=== PATIENT | female | born 1975 | race Caucasian/White ===

== ENCOUNTER 2016-08-06 16:47 | Inpatient (IN) | payer OTHER ==
[2016-08-06] MEDS ORDERED: HYDROmorphone HCL CARPU-JECT 1 MG/1 ML DISP.SYRIN IVPB ONE ×2 (17:21→18:22)
[2016-08-06] MEDS ORDERED: ONDANSETRON 4 MG/2 ML VIAL IVPUSH ONE (17:21)
--- NOTE | 2016-08-06 17:21 | PDOC ---
History of Present Illness - History of Present Illness Initial Comments: 08/06/16 17:25 The patient is a 40 year old female s/p gastric bypass 10 years ago who presents to the ED complaining of epigastric pain since this morning. The patient reports she had multiple episodes of this pain following her bypass surgery, but reports she has not had this pain in 5 years. She notes this pain is similar to the pain she has had in the past. She states when she has had this pain in the past she went to the ED and was given pain medication and medication to help her burp and move her bowels. She reports she has not had a bowel movement in 2 days and thinks she is constipated. She took an Oxycotin on the way to the ED and notes her pain was relieved for a short period of time. The patient denies nausea, vomiting, diarrhea The patient denies fever, chills, dysuria Surgical: Gastric bypass, breast reduction, tummy tuck, liposuction, hernia repair <Janice Tejada - Last Filed: 08/06/16 17:39> - General History Source: Patient Exam Limitations: No Limitations - History of Present Illness Travel History: No <Aga Christina - Last Filed: 08/07/16 12:19> - General Chief Complaint: Pain Stated Complaint: ABDOMINAL PAIN Time Seen by Provider: 08/06/16 16:49 Past History <Janice Tejada - Last Filed: 08/06/16 17:39> - Past Medical History Asthma: Yes GI Disorders: Yes (GASTRIC BYPASS) - Surgical History GI Surgery: Yes - Psycho/Social/Smoking Cessation Hx Anxiety: Yes Suicidal Ideation: No Smoking History: Former smoker Have you smoked in the past 12 months: No If you are a former smoker, when did you quit?: 20 YEARS AGO Information on smoking cessation initiated: No Hx Alcohol Use: No Drug/Substance Use Hx: No Substance Use Type: None <Aga Christina - Last Filed: 08/07/16 12:19> - Past Medical History Allergies/Adverse Reactions: Allergies Allergy/AdvReac Type Severity Reaction Status Date / Time No Known Allergies Allergy Verified 08/06/16 16:48 Home Medications: Ambulatory Orders Montelukast Na [Singulair -] 0 mg PO HS 08/06/16 Oxycodone HCl 10 mg PO QID 08/06/16 Review of Systems - Review of Systems Able to Perform ROS?: Yes Comments:: 08/06/16 17:27 GENERAL/CONSTITUTIONAL: No: fever, chills, weakness, loss of appetite. HEAD, EYES, EARS, NOSE AND THROAT: No: change in vision, ear pain, discharge, sore throat, throat swelling. CARDIOVASCULAR: No: chest pain, lightheadedness, palpitations, syncope RESPIRATORY: No: cough, shortness of breath, wheezing, hemoptysis, stridor. GASTROINTESTINAL: +Epigastric pain, constipation. No: nausea, vomiting, diarrhea , rectal bleeding, constipation. GENITOURINARY: No: dysuria, hematuria, frequency, urgency, flank pain. MUSCULOSKELETAL: No: back pain, neck pain, joint pain, muscle swelling or pain SKIN: No: lesions, pallor, rash or easy bruising. NEUROLOGIC: No: headache, vertigo, paresthesias, weakness ENDOCRINE: No: unexplained weight gain or loss HEMATOLOGIC/LYMPHATIC: No: anemia, easy bleeding, swelling nodes <Janice Tejada - Last Filed: 08/06/16 17:39> *Physical Exam - Vital Signs Last Vital Signs Temp Pulse Resp BP Pulse Ox 99 F 55 L 18 185/122 98 08/06/16 16:48 08/06/16 16:48 08/06/16 16:48 08/06/16 16:48 08/06/16 16:48 - Physical Exam Comments: 08/06/16 17:40 GENERAL: The patient is in no acute distress. HEAD: Normal with no signs of trauma. EYES: PERRLA, EOMI, sclera anicteric, conjunctiva clear. ENT: Ears normal, nares patent, oropharynx clear without exudates. Moist mucous membranes. NECK: Normal range of motion, supple without lymphadenopathy, JVD, or masses. LUNGS: Breath sounds equal, clear to auscultation bilaterally. No wheezes, and no crackles. HEART:Regular rate and rhythm, normal S1 and S2 without murmur, rub or gallop. ABDOMEN: +Tenderness to the epigastric region. Soft, normoactive bowel sounds. No guarding, no rebound. EXTREMITIES: Normal range of motion, no edema. No clubbing or cyanosis. No erythema, or tenderness. NEUROLOGICAL: Cranial nerves II through XII grossly intact. Normal speech. No focal neurological deficits. MUSCULOSKELETAL: Back nontender to palpation, no CVA tenderness SKIN: Warm, Dry, normal turgor, no rashes or lesions noted. <RhondaJanice rosario - Last Filed: 08/06/16 17:39> - Vital Signs Last Vital Signs Temp Pulse Resp BP Pulse Ox 99 F 55 L 18 185/122 98 08/06/16 16:48 08/06/16 16:48 08/06/16 16:48 08/06/16 16:48 08/06/16 16:48 <Aga Christina - Last Filed: 08/07/16 12:19> ED Treatment Course - LABORATORY CBC & Chemistry Diagram: 08/07/16 07:00 08/07/16 07:00 <Aga Christina - Last Filed: 08/07/16 12:19> Medical Decision Making - Medical Decision Making 08/06/16 17:21 A portion of this note was documented by scribe services under my direction. I have reviewed the details of the note, within reason, and agree with the documentation with the following case summary and management plan written by me. Nursing documentation reviewed and incorporated into medical decision making 40 yo F s/p gastric bypass at [facility] 10 years ago presenting to the ER with a complaint of upper abdominal pain Pt states she had previously had these symptoms but has not had them in the past 5 years She has not had a bowel movement in 2 days Her abdominal pain she thinks is related to "gas pain" She has had no fevers or chills She is nauseous but has not vomited No travel No ill contacts She states that at [place] she got a medication for pain and for gas which completely resolved her symptoms Pt thinks her abdomen is distended On examination: Epigastric tenderness to palpation No involuntary guarding No rebound 08/06/16 18:15 Laboratory Tests 08/06/16 08/06/16 17:30 17:30 WBC 6.5 Hgb 13.9 Hct 42.0 Plt Count 253 Sodium 132 L Potassium 3.9 Chloride 101 Carbon Dioxide 24 BUN 14 Creatinine 0.8 Random Glucose 103 Total Amylase 70 Lipase 29 Pt given Dilaudid (pt states "Do not give me Morphine, it does not work") Pt given Simethicone Will do CT of abd and pelvis 08/06/16 18:21 Pt states Dilaudid does not work for her, it takes the pain away temporarily but then it returns again 08/06/16 19:00 Pt signed out to Dr Lugo pending CT and re assessment after more pain medications <Aga Christina - Last Filed: 08/07/16 12:19> *DC/Admit/Observation/Transfer - Attestations Scribe Attestion: 08/06/16 17:26 Documentation prepared by Janice Tejada, acting as manager medical writing for Aga Christina MD/DO. <Janice Tejada - Last Filed: 08/06/16 17:39> <Aga Christina - Last Filed: 08/07/16 12:19> Diagnosis at time of Disposition: Abdominal pain - Discharge Dispostion Condition at time of disposition: Stable
[2016-08-06] MEDS ORDERED: SIMETHICONE 80 MG TAB.CHEW (FP) PO ONE (17:31)
[2016-08-06] MEDS ORDERED: HYDROmorphone HCL CARPU-JECT 2 MG/1 ML DISP.SYRIN ONE (17:40)
[2016-08-06] MEDS ORDERED: ONDANSETRON 4 MG/2 ML VIAL ONE (17:40)
[2016-08-06] MEDS ORDERED: SIMETHICONE 80 MG TAB.CHEW (FP) ONE (17:40)
[2016-08-06 17:57] VITALS: BMI 27.6
[2016-08-06 18:09] LABS: ALBUMIN 4.2 g/dl (3.5-5.0); ALK PHOS 62 U/L (32-92); AMYLASE 70 U/L (25-125); ANION GAP 7 (8-16); BILIRUBIN,TOTAL 0.8 mg/dl (0.2-1.0); CO2 24 mmol/L (22-28); CREATININE 0.8 mg/dl (0.6-1.3); GLUCOSE,RANDOM 103 mg/dl (74-106); SGOT/AST 43 U/L (10-42); SGPT/ALT 26 U/L (10-40); TOT PROT 7.6 g/dl (6.4-8.3)
[2016-08-06 18:11] LABS: MCH 29.8 pg (25.7-33.7); MCHC 33.2 g/dl (32.0-36.0); MEAN CELL VOLUME 89.8 fl (80-96); MEAN PLT VOLUME 9.3 fl (7.5-11.1); PLATELET COUNT 253 K/MM3 (134-434); RDW 16.2 % (11.6-15.6); WHITE BLOOD COUNT 6.5 K/mm3 (4.0-10.0)
[2016-08-06] MEDS ORDERED: KETOROLAC TROMETHAMINE 30 MG/1 ML VIAL IVPUSH ONE (19:09)
--- NOTE | 2016-08-06 19:10 | PDOC ---
*Physical Exam - Vital Signs Last Vital Signs Temp Pulse Resp BP Pulse Ox 99 F 68 18 172/108 98 08/06/16 16:48 08/06/16 18:57 08/06/16 18:57 08/06/16 18:57 08/06/16 18:57 ED Treatment Course - LABORATORY CBC & Chemistry Diagram: 08/06/16 17:30 08/06/16 17:30 - ADDITIONAL ORDERS Additional order review: Laboratory Results 08/06/16 08/06/16 17:30 17:30 Sodium 132 L Potassium 3.9 Chloride 101 Carbon Dioxide 24 Anion Gap 7 L BUN 14 Creatinine 0.8 Creat Clearance w eGFR > 60 Random Glucose 103 Calcium 10.0 Total Bilirubin 0.8 AST 43 H ALT 26 Alkaline Phosphatase 62 Total Protein 7.6 Albumin 4.2 Total Amylase 70 Lipase 29 Serum , Qual Negative 08/06/16 17:30 RBC 4.67 MCV 89.8 MCHC 33.2 RDW 16.2 H MPV 9.3 Neutrophils % Y Lymphocytes % Y - Medications Given in the ED: ED Medications Discontinued Medications Generic Name Dose Route Start Last Admin Trade Name Freq PRN Reason Stop Dose Admin Hydromorphone HCl 0.5 mg 08/06/16 17:21 08/06/16 17:47 Dilaudid Injection - IVPB 08/06/16 17:22 0.5 mg NOW ONE Administration Hydromorphone HCl 0.5 mg 08/06/16 18:22 08/06/16 18:56 Dilaudid Injection - IVPB 08/06/16 18:23 0.5 mg NOW ONE Administration Ondansetron HCl 4 mg 08/06/16 17:21 08/06/16 17:46 Zofran Injection IVPUSH 08/06/16 17:22 4 mg ONCE ONE Administration Simethicone 80 mg 08/06/16 17:31 08/06/16 17:45 Mylicon - PO 08/06/16 17:32 80 mg NOW ONE Administration Progress Note - Progress Note Progress Note: Care of this patient received from Dr. Christina. Abdominal/pelvic CT (with minimal oral contrast and full IV contrast) notable for significant mesenteric edema and some dilated small bowel loops, mainly in the lower quadrants . There are areas of dilated small bowel and areas of decompressed small bowel. colon appears normal. There is a small amount of pelvic free fluid. Thickening of small bowel loops are present in localized areas of the pelvis. Results discussed with Dr. Shukla; Dr. Shukla sent CT to Imaging plant protection superintendent for second opinion and results discussed with . Diagnoses of possible internal hernia versus inflammatory/infectious process of small bowel are brought up. Patient eventually became more comfortable after receiving 0.5 mg Dilaudid IV ( patient states was ineffective), Toradol 30 mg IV (also ineffective) and eventually 2 mg of morphine IV after which she had significant resolution of her pain. Twelve-lead electrocardiogram performed. This shows mild sinus tachycardia at 100 bpm; intervals, axis and wave forms are all normal. No evidence of acute ST or T-wave abnormalities. Case discussed with patient's PMD, Dr. Jez Godoy. Dr[facility]. Medical Decision Making - Medical Decision Making Case discussed with Dr. Perez, who performed patient's original surgery at [facility] 10 years ago. He will see her in the morning. 08/07/16 01:[address] Cooper of [facility] hospitalist service. Patient will be admitted under observation status to the service. Patient currently comfortable without further severe abdominal pain or nausea. Patient transferred to admission bed in stable condition. *DC/Admit/Observation/Transfer Diagnosis at time of Disposition: Abdominal pain Qualifiers: Abdominal location: generalized Qualified Code(s): R10.84 - Generalized abdominal pain - Discharge Dispostion Condition at time of disposition: Stable Admit: Yes
[2016-08-06] MEDS ORDERED: KETOROLAC TROMETHAMINE 30 MG/1 ML VIAL ONE (19:12)
[2016-08-06] MEDS ORDERED: morphine CARPU-JECT 2 MG/1 ML DISP.SYRIN IVPUSH ONE (19:41)
[2016-08-06] MEDS ORDERED: morphine CARPU-JECT 10 MG/1 ML DISP.SYRIN ONE (19:44)
[2016-08-06 20:05] LABS: ANISOCYTOSIS 1+
[2016-08-07] MEDS ORDERED: ONDANSETRON 4 MG/2 ML VIAL IVPUSH PRN (01:19)
[2016-08-07] MEDS ORDERED: cloNIDine HCL 0.1 MG TABLET PO ONE (01:19)
[2016-08-07] MEDS ORDERED: cloNIDine HCL 0.1 MG TABLET ONE (01:21)
[2016-08-07] MEDS ORDERED: SODIUM CHLORIDE 1,000 ML IV SCH (01:30)
[2016-08-07] MEDS ORDERED: diphenhydrAMINE HCL 25 MG CAPSULE (FP) PO ONE (02:04)
--- NOTE | 2016-08-07 08:25 | HP ---
CHIEF COMPLAINT: abdominal pain PCP: Dr Godoy HISTORY OF PRESENT ILLNESS: patient is a 40-year-old female, with a past medical history of lumbar disc herniations and a past surgical history of abdominoplasty, breast reduction, and a gastric bypass in 2006 ([place]). She reports multiple intermittent episodes of abdominal pain since surgery that resolved spontaneously on its own. she reports episodes of abdominal pain and was evaluated in local emergency departments was given pain medication and medications increase gastric motility resolution of the pain. However. yesterday, 08/06/2016, she developed this same abdominal pain that worsened and did not resolve as a result she sought evaluation in the emergency department. ER course was notable for: (1)EKG NSR normal axis (2) WBC 6.1 (3) ct scan of abd/pelvis with IV and oral contrast notable for significant mesenteric edema in mid and left side of the abdomen with thickening of the adjacent small bowel loops, moderate dilation of small bowel, short segment of small bowel thickening at the site of sutures around a mid small bowel Recent Travel: none PAST MEDICAL HISTORY: lumbar disc herniations PAST SURGICAL HISTORY:abdominoplasty, breast reduction, gastric bypass Social History:employed as a business applications analyst Smoking:none Alcohol:none Drugs: none Family History:noncontributory Allergies No Known Allergies Allergy (Verified 08/06/16 16:48) HOME MEDICATIONS: Home Medications Medication Instructions Recorded Montelukast Na [Singulair -] 0 mg PO HS 08/06/16 Oxycodone HCl 10 mg PO QID 08/06/16 REVIEW OF SYSTEMS CONSTITUTIONAL: Absent: fever, chills, diaphoresis, generalized weakness, malaise, loss of appetite, weight change HEENT: Absent: rhinorrhea, nasal congestion, throat pain, throat swelling, difficulty swallowing, mouth swelling, ear pain, eye pain, visual changes CARDIOVASCULAR: Absent: chest pain, syncope, palpitations, irregular heart rate, lightheadedness , peripheral edema RESPIRATORY: Absent: cough, shortness of breath, dyspnea with exertion, orthopnea, wheezing, stridor, hemoptysis GASTROINTESTINAL: present: Abdominal pain Absent: abdominal distension, nausea, vomiting, diarrhea, constipation, melena, hematochezia GENITOURINARY: Absent: dysuria, frequency, urgency, hesitancy, hematuria, flank pain, genital pain MUSCULOSKELETAL: Absent: myalgia, arthralgia, joint swelling, back pain, neck pain SKIN: Absent: rash, itching, pallor HEMATOLOGIC/IMMUNOLOGIC: Absent: easy bleeding, easy bruising, lymphadenopathy, frequent infections ENDOCRINE: Absent: unexplained weight gain, unexplained weight loss, heat intolerance, cold intolerance NEUROLOGIC: Absent: headache, focal weakness or paresthesias, dizziness, unsteady gait, seizure, mental status changes, bladder or bowel incontinence PSYCHIATRIC: Absent: anxiety, depression, suicidal or homicidal ideation, hallucinations. PHYSICAL EXAMINATION Vital Signs - 24 hr 08/07/16 08/07/16 08/07/16 01:53 05:19 06:09 Temperature 98.1 F 98.6 F Pulse Rate 92 H 72 Respiratory 18 17 Rate Blood Pressure 153/108 127/87 O2 Sat by Pulse 96 99 Oximetry (%) GENERAL: Awake, alert, and fully oriented, in no acute distress. HEAD: Normal with no signs of trauma. EYES: Pupils equal, round and reactive to light, extraocular movements intact, sclera anicteric, conjunctiva clear. No lid lag. EARS, NOSE, THROAT: Ears normal, nares patent, oropharynx clear without exudates. Moist mucous membranes. NECK: Normal range of motion, supple without lymphadenopathy, JVD, or masses. LUNGS: Breath sounds equal, clear to auscultation bilaterally. No wheezes, and no crackles. No accessory muscle use. HEART: Regular rate and rhythm, normal S1 and S2 without murmur, rub or gallop. ABDOMEN: Soft, diffuse abdominal tenderness, normoactive bowel sounds, no guarding, no rebound, no masses. No hepatomegaly or splenomegaly. MUSCULOSKELETAL: Normal range of motion at all joints. No bony deformities or tenderness. No CVA tenderness. UPPER EXTREMITIES: 2+ pulses, warm, well-perfused. No cyanosis. No clubbing. No peripheral edema. LOWER EXTREMITIES: 2+ pulses, warm, well-perfused. No calf tenderness. No peripheral edema. NEUROLOGICAL: Cranial nerves II-XII intact. Normal speech. Normal gait. PSYCHIATRIC: Cooperative. Good eye contact. Appropriate mood and affect. SKIN: Warm, dry, normal turgor, no rashes or lesions noted, normal capillary refill. ASSESSMENT/PLAN: 1) GI - CT scan of abdomen reviewed, with Dr. Perez, internal hernia noted concerning for ischemic bowel-->pending OR today - NPO, IVF ordered - rocephin and flagyl ordered 2) ms lumbar disc herniations -no acute exacerbation at this time F/E/N - IVF - replete lytes prn ppx - pepcid - hold ac pending or - oob - scd/violet dispo: patient is medically optimized for surgery, requires inpatient care Problem List - Problem (1) Internal hernia Code(s): K45.8 - OTH ABDOMINAL HERNIA WITHOUT OBSTRUCTION OR GANGRENE (2) Lumbar disc herniation Code(s): M51.26 - OTHER INTERVERTEBRAL DISC DISPLACEMENT, LUMBAR REGION Visit type - Emergency Visit Emergency Visit: Yes ED Registration Date: 08/07/16 Care time: The patient presented to the Emergency Department on the above date and was hospitalized for further evaluation of their emergent condition. - New Patient This patient is new to me today: Yes Date on this admission: 08/07/16 - Critical Care Critical Care patient: No
[2016-08-07 08:40] LABS: ALBUMIN 3.2 g/dl (3.5-5.0); ALK PHOS 50 U/L (32-92); ANION GAP 5 (8-16); BILIRUBIN,TOTAL 0.7 mg/dl (0.2-1.0); CALCIUM 9.2 mg/dl (8.4-10.2); CO2 27 mmol/L (22-28); CREATININE 0.7 mg/dl (0.6-1.3); GLUCOSE,RANDOM 86 mg/dl (74-106); SGOT/AST 29 U/L (10-42); SGPT/ALT 20 U/L (10-40); TOT PROT 6.1 g/dl (6.4-8.3)
[2016-08-07 08:51] LABS: BASOPHIL 0.2 % (0-2.0); EOSINOPHIL 1.7 % (0-4.5); MCH 30.6 pg (25.7-33.7); MCHC 33.9 g/dl (32.0-36.0); MEAN CELL VOLUME 90.3 fl (80-96); MEAN PLT VOLUME 9.3 fl (7.5-11.1); NEUTROPHILS 72.6 % (42.8-82.8); PLATELET COUNT 200 K/MM3 (134-434); WHITE BLOOD COUNT 9.5 K/mm3 (4.0-10.0)
[2016-08-07] MEDS: D5-NS + 20 MEQ KCL - 1,000 ML IV SCH (10:02)
[2016-08-07] MEDS: METRONIDAZOLE 500 MG PREMIXED 100 ML IVPB SCH (10:03)
[2016-08-07] MEDS: FAMOTIDINE 20 MG/50 ML IVPB 50 ML IVPB SCH ×2 (10:03→21:39)
[2016-08-07] MEDS: cefTRIAXone 2 GM/100 ML BAG (PRE-DOCKED) IVPB SCH (10:03)
[2016-08-07 10:40] LABS: URINE APPEARANCE Clear; URINE BILIRUBIN 1+ (NEGATIVE); URINE BLOOD Negative (NEGATIVE); URINE COLOR YELLOW; URINE GLUCOSE (UA) Negative (NEGATIVE); URINE KETONE Negative (NEGATIVE); URINE LEUK ESTERASE Negative (NEGATIVE); URINE NITRITE Negative (NEGATIVE); URINE PROTEIN Trace (NEGATIVE); URINE UROBILINOGEN 0.2 E.U/dl (0.2-1.0)
[2016-08-07 13:24] LABS: INR 0.96 (0.82-1.09); PROTHROMBIN TIME (PATIENT) 10.8 SEC (10.2-13.0)
[2016-08-07] MEDS: HYDROmorphone HCL CARPU-JECT 1 MG/1 ML DISP.SYRIN IVPB PRN (14:26)
[2016-08-07] MEDS ORDERED: PROPOFOL 20 ML ONE (15:41)
[2016-08-07] MEDS ORDERED: ROCURONIUM BROMIDE 50 MG/5 ML VIAL ONE ×2 (15:42→18:13)
[2016-08-07] MEDS ORDERED: MIDAZOLAM HCL 2 MG/2 ML SINGLE DOSE VIAL ONE (15:44)
[2016-08-07] MEDS ORDERED: LIDOCAINE 1%-EPI 1:100,000 30 ML MDV IJ ONE (15:46)
[2016-08-07] MEDS ORDERED: GUM MASTIC/STORAX/MSAL/ALCOHOL 1 DRP DROPSBTL MC ONE (15:46)
[2016-08-07] MEDS ORDERED: ONDANSETRON 4 MG/2 ML VIAL ONE ×2 (17:16)
[2016-08-07] MEDS ORDERED: KETOROLAC TROMETHAMINE 30 MG/1 ML VIAL ONE ×2 (17:17)
[2016-08-07] MEDS ORDERED: DEXAMETHASONE SOD PHOSPHATE 4 MG/1 ML VIAL ONE ×2 (17:17)
[2016-08-07] MEDS ORDERED: HYDROmorphone HCL/PF 1 MG/ML VIAL (FOR PYXIS CHARGING ONLY) ONE (18:18)
--- NOTE | 2016-08-07 18:30 | OP ---
Operative Note - Note: Operative Date: 08/07/16 Pre-Operative Diagnosis: internal hernia Operation: diagnostic laparoscopy and repair of internal hernia Findings: internal hernia in jejunal-jejunal defect Post-Operative Diagnosis: Same as Pre-op Surgeon: Siva Perez Lawn And Garden Technician: Soraya Muller Anesthesia: General Estimated Blood Loss (mls): 5
--- NOTE | 2016-08-07 18:39 | SURG ---
Surgery Learning Technologist Note Learning Technologist: Soraya Muller PA-C Date of Service: 08/07/16 Diagnosis: internal hernia Procedure: diagnostic laparoscopy and repair of internal hernia I was present for the entirety of the operative procedure. For further detail, please refer to operative report. Visit type - Case Type Case Type: ED Admission - Emergency Emergency Visit: Yes ED Registration Date: 08/07/16 Care time: The patient presented to the Emergency Department on the above date and was hospitalized for further evaluation of their emergent condition. - New patient This patient is new to me today: Yes Date on this admission: 08/07/16 - Critical Care Critical Care patient: No
[2016-08-07] MEDS ORDERED: PROMETHAZINE HCL 25 MG/1 ML VIAL ONE (18:53)
[2016-08-07] MEDS ORDERED: PROMETHAZINE HCL 25 MG/1 ML VIAL IVPUSH ONE (19:00)
[2016-08-07] MEDS ORDERED: diphenhydrAMINE HCL 50 MG CAPSULE PO ONE (21:55)
[2016-08-07] MEDS: OXYCODONE/APAP 5/325MG COMBO TABLET PO PRN (22:27)
[2016-08-08] MEDS: METRONIDAZOLE 500 MG PREMIXED 100 ML IVPB SCH ×3 (01:20→11:00)
[2016-08-08] MEDS: OXYCODONE/APAP 5/325MG COMBO TABLET PO PRN (05:37)
[2016-08-08 06:04] VITALS: BP 129/83; PULSE 68; TEMP 98.1
[2016-08-08] MEDS: cefTRIAXone 2 GM/100 ML BAG (PRE-DOCKED) IVPB SCH (09:23)
[2016-08-08] MEDS: FAMOTIDINE 20 MG/50 ML IVPB 50 ML IVPB SCH (09:24)
[2016-08-08] MEDS: HYDROmorphone HCL CARPU-JECT 1 MG/1 ML DISP.SYRIN IVPB PRN (09:24)
[2016-08-08] MEDS: D5-NS + 20 MEQ KCL - 1,000 ML IV SCH (09:25)
--- NOTE | 2016-08-08 10:56 | OP ---
DATE OF OPERATION: 08/07/2016 PREOPERATIVE DIAGNOSIS: Status post gastric bypass, abdominal pain, rule out internal hernia. POSTOPERATIVE DIAGNOSIS: Internal hernia, jejunojejunal space. PROCEDURE: Diagnostic laparoscopy, reduction of internal hernia and repair of mesenteric defect. SURGEON: MD Renetta ASSISTANTS: DMITRY Bae ANESTHESIA: General. COMPLICATIONS: None. SPECIMENS: There were no specimens. CONDITION: Patient tolerated the procedure well. FINDINGS: Internal hernia. INDICATIONS: This is a 40-year-old female status post gastric bypass performed approximately 15 years ago at another institution with successful weight loss, who presents with 1-day history of intense, severe abdominal pain. Patient was evaluated in the emergency room with a CT scan and surgical consultation was requested. On evaluation, patient had a soft, benign abdomen with complete resolution of pain, but on CT evaluation there was clear evidence of swirl sign suggestive of an internal hernia. The decision was made to take the patient to the operating room for a diagnostic laparoscopy. DESCRIPTION OF PROCEDURE: In the operating room, she was placed in a supine position. After the induction of general anesthesia, she was prepped and draped in the usual sterile fashion. After standard time-out, the operation was begun with insufflation through a Veress needle in the left subcostal margin to a pressure of 15 mmHg. Next, using an Optiview trocar under direct vision, a total of 4 trocars were introduced, all these trocars, 2 in the left abdomen and 2 in the right side of the abdomen. 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 On evaluation of the small bowel, there was clear evidence of an internal hernia. The small bowel was then followed from the ileocecal valve in a retrograde fashion until the distal anastomosis was encountered. The Jose Manuel limb was identified and then followed to the entrance into the transverse mesocolon. Eventually, after extensive manipulation, the hernia was reduced. It was clearly identified as a defect in the jejunojejunal space by the jejunal anastomosis. The transverse mesocolon was well healed, and the Rico space was also inspected and appeared to be well enclosed. The defect of the transverse mesocolon was then at this point repaired using 2-0 silk sutures in running fashion. Once complete, the defect was again thoroughly inspected. Peritoneal cavity was irrigated and suctioned. The ascites was aspirated as much as possible. At this point, the ports were removed under direct vision. The fascia at the 12-mm port was closed with 0 Vicryl sutures to close the fascia, 4-0 Monocryl was used to close the skin at all port sites, Dermabond was applied, and the patient was returned to the recovery room awake, alert, and in stable condition. She tolerated the procedure well. LIZZY BURGER M.D. [id number]
--- NOTE | 2016-08-08 12:29 | PN ---
Progress Note, Physician History of Present Illness: s/p lap repair of internal hernia feeling better - Current Medication List Current Medications: Active Medications Ceftriaxone Sodium (Rocephin 2gm Ivpb (Pre-Docked)) 2 gm IVPB DAILY ODALYS PRN Reason: Protocol Last Admin: 08/08/16 09:23 Dose: 2 gm Hydromorphone HCl (Dilaudid Injection -) 0.5 mg IVPB Q6H PRN PRN Reason: PAIN Last Admin: 08/08/16 09:24 Dose: 0.5 mg Sodium Chloride (Normal Saline -) 1,000 mls @ 125 mls/hr IV ASDIR ODALYS Last Admin: 08/07/16 02:19 Dose: 125 mls/hr Dextrose/Sodium Chloride (Dextrose 5%-Normal Saline+20 Meq Kcl -) 1,000 mls @ 100 mls/hr IV ASDIR ODALYS Last Admin: 08/08/16 09:25 Dose: 100 mls/hr Famotidine/Sodium Chloride (Pepcid 20 Mg Premixed Ivpb -) 50 mls @ 100 mls/hr IVPB BID ODALYS Last Admin: 08/08/16 09:24 Dose: 100 mls/hr Metronidazole (Flagyl 500mg Premixed Ivpb -) 100 mls @ 100 mls/hr IVPB Q8H-IV ODALYS Last Admin: 08/08/16 09:24 Dose: 100 mls/hr Ondansetron HCl (Zofran Injection) 4 mg IVPUSH Q6H PRN PRN Reason: NAUSEA AND/OR VOMITING Oxycodone/Acetaminophen (Percocet 5/325 -) 1 combo PO Q6H PRN PRN Reason: PAIN LEVEL 6-10 Last Admin: 08/08/16 05:37 Dose: 1 combo - Objective Vital Signs: Vital Signs Temperature 98.1 F 08/08/16 05:00 Pulse Rate 68 08/08/16 05:00 Respiratory Rate 18 08/08/16 05:00 Blood Pressure 129/83 08/08/16 05:00 O2 Sat by Pulse Oximetry (%) 100 08/07/16 23:01 Labs: INR, PTT INR 0.96 (0.82-1.09) L 08/07/16 13:00 Problem List - Problems (1) Internal hernia Code(s): K45.8 - OTH ABDOMINAL HERNIA WITHOUT OBSTRUCTION OR GANGRENE Assessment/Plan s/p repair of internal hernia advance diet as tolerated DC home if tolerating PO\ Follow up next week in my office
--- NOTE | 2016-08-08 12:50 | DS ---
Physical Exam: SUBJECTIVE: Patient seen and examined. OBJECTIVE: Vital Signs Period Temp Pulse Resp BP Sys/Lao Pulse Ox Last 24 Hr 97.5 F-98.5 F 49-69 10-19 129-163/82-100 97-100 PHYSICAL EXAM GENERAL: The patient is awake, alert, and fully oriented, in no acute distress. HEAD: Normal with no signs of trauma. EYES: PERRL, extraocular movements intact, sclera anicteric, conjunctiva clear. ENT: Ears normal, nares patent, oropharynx clear without exudates, moist mucous membranes. NECK: Trachea midline, full range of motion, supple. LUNGS: Breath sounds equal, clear to auscultation bilaterally, no wheezes, no crackles, no accessory muscle use. HEART: Regular rate and rhythm, S1, S2 without murmur, rub or gallop. ABDOMEN: Soft, nontender, nondistended, normoactive bowel sounds, no guarding, no rebound, no hepatosplenomegaly, no masses. Surgical incisions clean and dry. EXTREMITIES: 2+ pulses, warm, well-perfused, no edema. NEUROLOGICAL: Cranial nerves II through XII grossly intact. Normal speech, gait not observed. PSYCH: Normal mood, normal affect. SKIN: Warm, dry, normal turgor, no rashes or lesions noted. LABS Laboratory Results - last 24 hr 08/07/16 08/07/16 08/07/16 09:41 09:41 13:00 INR 0.96 L Blood Type O NEGATIVE O NEGATIVE Antibody Screen Negative Cancelled Spec Expiration Date Cancelled HOSPITAL COURSE: This is a 40-year-old female with a history of lumbar disc herniations, anxiety, abdominoplasty, breast reduction, and a gastric [place] [address] Bee who presented to the ED on 08/06 with abdominal pain and was admitted after CT scan showed significant mesenteric edema in mid and left side of the abdomen with thickening of the adjacent small bowel loops, moderate dilation of small bowel, short segment of small bowel thickening at the site of sutures around a mid small bowel. She was taken to the OR by Dr. Bee and had a diagnostic laparoscopy and repair of internal hernia. She has recovered well and has had several BMs. WBCs have remained within normal limits and the patient has been afebrile. Today, she is tolerating clear liquids well. She was seen by surgery and cleared for discharge with office followup. Home care and return precautions reviewed. Date of Admission:08/07/16 Date of Discharge: 08/08/16 Minutes to complete discharge: 35 Discharge Summary Reason For Visit: ABDOMINAL PAIN Current Active Problems Abdominal pain (Acute) Internal hernia (Acute) Lumbar disc herniation (Acute) Condition: Stable - Instructions Diet, Activity, Other Instructions: May shower in two days, NO BATHS. Follow-up with Dr. Baxter in two weeks, call to schedule an appointment. Call your surgeon if you develop persistent abdominal pain, nausea, vomiting. Also call if you develop drainage or redness from your incisions, fever. No heavy lifting. Referrals: Siva Perez [Staff Physician] - - Home Medications Comprehensive Discharge Medication List: Ambulatory Orders Montelukast Na [Singulair -] 0 mg PO HS 08/06/16 Oxycodone HCl 10 mg PO QID 08/06/16 This patient is new to me today: Yes Date on this admission: 08/08/16 Emergency Visit: Yes ED Registration Date: 08/07/16 Care time: The patient presented to the Emergency Department on the above date and was hospitalized for further evaluation of their emergent condition. Critical Care patient: No - Discharge Referral Referred to [facility] No
--- NOTE | 2016-08-10 09:14 | EKG ---
Test Reason : Blood Pressure : / mmHG Vent. Rate : 100 BPM Atrial Rate : 100 BPM P-R Int : 152 ms QRS Dur : 074 ms QT Int : 344 ms P-R-T Axes : 050 038 047 degrees QTc Int : 443 ms NORMAL SINUS RHYTHM NORMAL ECG WHEN COMPARED WITH ECG OF 26-JUL-2013 16:52, NO SIGNIFICANT CHANGE WAS FOUND Confirmed by BARAK MICHELLE MD ([id number]) on 08/10/2016 9:13:47 AM Referred By: BENOIT BARBOUR Confirmed By:BARAK MICHELLE MD
== END 2016-08-08 14:05 | disposition home or self-care (01) | DRG 223 ==
LOC: FER 16:47 → FM/S 08-07 01:29 → OBSVTOIN 08-07 08:57
PROVIDERS: ADMIT Internal Medicine; ATTEND Registered Nurse Emergency
PROC: 0W9F4ZZ Drainage of Abdominal Wall, Percutaneous Endoscopic Approach (ICD-10-PCS; 2016-08-07)
PROC: 3E1M38Z Irrigation of Peritoneal Cavity using Irrigating Substance, Percutaneous Approach (ICD-10-PCS; 2016-08-07)
PROC: 0DQL4ZZ Repair Transverse Colon, Percutaneous Endoscopic Approach (ICD-10-PCS; principal; 2016-08-07 14:30)
DX: K45.8 Other specified abdominal hernia without obstruction or gangrene (principal); I89.8 Other specified noninfective disorders of lymphatic vessels and lymph nodes; M51.26 Other intervertebral disc displacement, lumbar region; Z98.84 Bariatric surgery status; Z41.1 Encounter for cosmetic surgery
CPT/HCPCS: 36415; 74177-TC; 80053; 81003; 82150; 83690; 84703; 85025; 85610; 86850; 86900; 86901; 87086; 87186; 93005; 94760; 99285-25; G0378

== ENCOUNTER 2017-02-01 21:54 | Emergency (ER) | payer OTHER ==
[2017-02-01 22:23] VITALS: PULSE 94; TEMP 98.3; BMI 27.4
[2017-02-01] MEDS ORDERED: predniSONE 20 MG TABLET (UD) PO ONE (22:41)
--- NOTE | 2017-02-01 22:43 | PDOC ---
History of Present Illness - General Chief Complaint: Itching Stated Complaint: ALLERGIC REACTION Time Seen by Provider: 02/01/17 21:57 - History of Present Illness Initial Comments: This 41-year-old woman with a history of asthma (has not used her inhaler in many months), gastric bypass and surgery for SBO /internal hernia 6 months ago presents with generalized pruritus and history of sensation of difficulty swallowing. These symptoms occurred a few hours prior to presentation. The patient states that her is currently being hospitalized at [facility]. She has been having symptoms consistent with an ALLERGIC reaction every time she visits her in the hospital. However, she states that in the past, she has had generalized itching and occasional rash when she is anxious or has excessive stress in her life. Tonight, when she had the symptoms , she took 10 mg of cetirizine. Generally, symptoms resolve with this medication. Tonight, however symptoms were persistent and patient took Benadryl /[place]azolam (benzodiazep[place] When she continued to have the medications, the patient presented here. She denies wheezing/shortness of breath/lip or tongue swelling. She has no history of anaphylaxis and no known history of ALLERGIES to medications or food. Of note, patient drinks approximately 4-6 ounces of vodka every night and has not had any alcohol in 24 hours. She has been this amount of alcohol daily for several months. She states that she occasionally skips drinking alcohol for a night and has not had any adverse effects. Past History - Past Medical History Allergies/Adverse Reactions: Allergies Allergy/AdvReac Type Severity Reaction Status Date / Time No Known Allergies Allergy Verified 02/01/17 21:57 Home Medications: Ambulatory Orders Cetirizine HCl 10 mg PO PRN 02/01/17 Diphenhydramine [Benadryl -] 50 mg PO DAILY 02/01/17 Prednisone [Deltasone -] 20 mg PO DAILY #4 tablet 02/01/17 Lisinopril [Prinivil] 10 mg PO DAILY #10 tablet 02/02/17 Asthma: Yes GI Disorders: Yes (GASTRIC BYPASS) - Surgical History GI Surgery: Yes - Suicide/Smoking/Psychosocial Hx Smoking History: Former smoker Have you smoked in the past 12 months: No If you are a former smoker, when did you quit?: 20 YEARS AGO Information on smoking cessation initiated: No Hx Alcohol Use: Yes (DAILY) Drug/Substance Use Hx: No Substance Use Type: Alcohol Review of Systems - Review of Systems Able to Perform ROS?: Yes Comments:: 12 point review of systems is negative except for what is noted in the history of present illness *Physical Exam - Vital Signs Last Vital Signs Temp Pulse Resp BP Pulse Ox 98.3 F 94 H 16 161/132 100 02/01/17 22:02 02/01/17 22:02 02/01/17 22:02 02/01/17 22:02 02/01/17 22:02 - Physical Exam Comments: GENERAL: Adult female, appearing anxious, alert and oriented 3, in no respiratory distress HEAD: Normal with no signs of trauma. EYES: PERRLA, EOMI, sclera anicteric, conjunctiva clear. ENT: Ears normal, nares patent, oropharynx clear without exudates. Dry mucous membranes. Erythematous, maculopapular rash bilateral zygomatic arches No lip/tongue/uvular edema; no stridor NECK: Normal range of motion, supple without lymphadenopathy, JVD, or masses. LUNGS: Breath sounds equal, clear to auscultation bilaterally. No wheezes, and no crackles. HEART:Regular rate and rhythm, normal S1 and S2 without murmur, rub or gallop. ABDOMEN:.normal bowel sounds No guarding,tenderness or rebound.No masses No distention. EXTREMITIES: Normal range of motion, no edema. No clubbing or cyanosis. No erythema, or tenderness. NEUROLOGICAL: Cranial nerves II through XII grossly intact. Normal speech. No focal neurological deficits. MUSCULOSKELETAL: Back non-tender to palpation, no CVA tenderness SKIN: Warm, Dry, normal turgor, facial rash as noted above; no other rash evident Medical Decision Making - Medical Decision Making Because the patient has had sensation of throat closing (even though there is no stridor or edematous upper airway on exam), 20 mg of prednisone was given. Clonidine 0.1 milligram 2 doses was given for patient's hypertension. Patient has no history of essential hypertension. Although she may have developed HTN and she is under considerable amount of stress with her being hospitalized, part of her hyperdynamic vital signs may be related to alcohol withdrawal. 2 doses of clonidine 0.1 mg were ineffective in lowering blood pressure Captopril no longer on formulary here. Lisinopril 5 mg PO given to patient for BP control Patient states that she will probably "drink a beer" when she gets home. Since she is not at all sedated, appearing alert and oriented with clear speech, it is unlikely that she will have any adverse effect from ethanol ingestion. Furthermore, it would be beneficial if she is having any early alcohol withdrawal symptoms 02/02/17 01:45 Patient comfortable without any further difficulty swallowing. She states that her itching has stopped completely. She denies headache/visual changes/chest pressure or shortness of breath. Patient states that she will take tomorrow off from work and has contacted her boss regarding this. Work documentation will be provided for her. She will call Dr. Godoy's office in the morning to arrange follow-up within 48 hours. She should return to the emergency room if she has worsening itching or develops recurrence of difficulty swallowing. Meanwhile, lisinopril 10 mg daily prescription will be sent to her pharmacy and she should continue this dose until seen by Dr. Godoy. *DC/Admit/Observation/Transfer Diagnosis at time of Disposition: Allergic reaction Qualifiers: Encounter type: initial encounter Qualified Code(s): T78.40XA - Allergy, unspecified, initial encounter Hypertension Qualifiers: Hypertension type: unspecified Qualified Code(s): I10 - Essential (primary) hypertension - Discharge Dispostion Disposition: HOME Condition at time of disposition: Stable - Prescriptions Prescriptions: Prednisone [Deltasone -] 20 mg PO DAILY #4 tablet Lisinopril [Prinivil] 10 mg PO DAILY #10 tablet - Patient Instructions Printed Discharge Instructions: DI for General Allergic Reactions Additional Instructions: Prednisone 20 mg daily for the next 4 days (take with food) Continue cetirizine as needed for itching No work tomorrow Lisinopril [address] Godoy's office tomorrow to make appointment for follow-up within the next 2 days Return to ER if you have any further difficulty swallowing or experience wheezing/shortness of breath - Post Discharge Activity Forms/Work/School Notes: Back to Work
[2017-02-01] MEDS ORDERED: predniSONE 20 MG TABLET (UD) ONE (22:45)
[2017-02-01] MEDS ORDERED: cloNIDine HCL 0.1 MG TABLET PO ONE (23:00)
[2017-02-01] MEDS ORDERED: cloNIDine HCL 0.1 MG TABLET ONE (23:15)
[2017-02-02] MEDS ORDERED: cloNIDine HCL 0.1 MG TABLET PO ONE (00:16)
[2017-02-02] MEDS ORDERED: cloNIDine HCL 0.1 MG TABLET ONE (00:17)
[2017-02-02] MEDS ORDERED: LISINOPRIL 5 MG TABLET (FP) PO ONE (01:36)
[2017-02-02] MEDS ORDERED: LISINOPRIL 5 MG TABLET (FP) ONE (01:37)
[2017-02-02 02:13] VITALS: BP 180/126
== END 2017-02-02 02:32 | disposition home or self-care (01) ==
LOC: FER 21:54
DX: T78.40XA Allergy, unspecified, initial encounter (principal); I10 Essential (primary) hypertension; J45.909 Unspecified asthma, uncomplicated; Z87.891 Personal history of nicotine dependence; Z98.84 Bariatric surgery status
CPT/HCPCS: 99281-25

== ENCOUNTER 2017-06-15 01:55 | Emergency (ER) | payer OTHER ==
[2017-06-15 02:03] VITALS: BP 165/110; PULSE 60; TEMP 98.4; BMI 25.4
--- NOTE | 2017-06-15 02:21 | PDOC ---
History of Present Illness - General Chief Complaint: Itching Stated Complaint: ITCHING TO BODY X MONTHS Time Seen by Provider: 06/15/17 02:00 Past History - Past Medical History Allergies/Adverse Reactions: Allergies Allergy/AdvReac Type Severity Reaction Status Date / Time No Known Allergies Allergy Verified 06/15/17 01:57 Home Medications: Ambulatory Orders predniSONE [Deltasone -] 20 mg PO DAILY #4 tablet 06/15/17 Asthma: Yes COPD: No GI Disorders: Yes (GASTRIC BYPASS) - Surgical History GI Surgery: Yes - Suicide/Smoking/Psychosocial Hx Smoking History: Former smoker Have you smoked in the past 12 months: No If you are a former smoker, when did you quit?: 20 YEARS AGO Information on smoking cessation initiated: No Hx Alcohol Use: Yes (4 BEERS AND VODKA DAILY) Drug/Substance Use Hx: No Substance Use Type: Alcohol *Physical Exam - Vital Signs Last Vital Signs Temp Pulse Resp BP Pulse Ox 98.4 F 60 16 165/110 100 06/15/17 01:59 06/15/17 01:59 06/15/17 01:59 06/15/17 01:59 06/15/17 01:59 *DC/Admit/Observation/Transfer Diagnosis at time of Disposition: Allergic reaction Qualifiers: Encounter type: subsequent encounter Qualified Code(s): T78.40XD - Allergy, unspecified, subsequent encounter - Discharge Dispostion Condition at time of disposition: Stable - Prescriptions Prescriptions: predniSONE [Deltasone -] 20 mg PO DAILY #4 tablet - Referrals Referrals: Awais Richardson MD [Non Staff, Medical] - Call tomorrow Jez Godoy MD [Primary Care Provider] - 1 week - Patient Instructions Printed Discharge Instructions: DI for General Allergic Reactions Additional Instructions: Prednisone 20 mg daily for the next 4 days Take prednisone with food Continue Benadryl at night/Claritin during the day as needed Follow-up with employee relations director () as discussed Indoor air quality evaluation as discussed followup with Dr Godoy within 1 week for blood pressure evaluation Return to ER if you have persistent throat closure sensation/difficulty breathing/wheezing - Post Discharge Activity
[2017-06-15] MEDS ORDERED: methylPREDNISolone NA SUCC 125 MG/2 ML VIAL IM SCH (10:00)
== END 2017-06-15 03:12 | disposition home or self-care (01) ==
LOC: FER 01:55
DX: T78.40XD Allergy, unspecified, subsequent encounter (principal); Z87.891 Personal history of nicotine dependence; J45.909 Unspecified asthma, uncomplicated; Z98.84 Bariatric surgery status
CPT/HCPCS: 99281-25

== ENCOUNTER 2020-04-15 11:47 | Inpatient (IN) | payer OTHER ==
[2020-04-15] MEDS ORDERED: LACTATED RINGERS SOLUTION 1000 ML INFUS.BAG IV ONE (12:12)
[2020-04-15 12:51] LABS: HEMOGLOBIN 12.1 GM/dl (10.7-15.3); MCH 28.6 pg (25.7-33.7); MEAN CELL VOLUME 92.2 fl (80-96); MEAN PLT VOLUME 9.9 fl (7.5-11.1); PLATELET COUNT 197 K/MM3 (134-434); RBC 4.23 M/mm3 (3.60-5.2); RDW 16.5 % (11.6-15.6); WHITE BLOOD COUNT 13.9 K/mm3 (4.0-10.8)
[2020-04-15 13:00] LABS: ADD RBC MORPHOLOGY YES
[2020-04-15 13:05] LABS: ALBUMIN 3.3 g/dl (3.4-5.0); BILIRUBIN,TOTAL 0.6 mg/dl (0.2-1); TOT PROT 6.8 g/dl (6.4-8.2)
[2020-04-15 13:09] LABS: POTASSIUM 2.7 mmol/L (3.5-5.1)
[2020-04-15] MEDS ORDERED: POTASSIUM CHLORIDE TABS 20 MEQ TABLET.ER (FP) PO ONE ×2 (13:12→13:25)
[2020-04-15 13:21] LABS: EPITHELIAL CELLS MANY /hpf
[2020-04-15] MEDS ORDERED: KCL 10 MEQ IVPB 10 MEQ/100 ML INFUS.BAG IVPB ONE (13:25)
[2020-04-15] MEDS: KCL 10 MEQ IVPB 10 MEQ/100 ML INFUS.BAG IVPB SCH ×3 (13:33→15:32)
[2020-04-15] MEDS ORDERED: KCL 10 MEQ IVPB 20 MEQ/200 ML INFUS.BAG IVPB ONE (13:42)
[2020-04-15 13:46] LABS: PLATELET ESTIMATE ADEQUATE
[2020-04-15 14:05] LABS: MAGNESIUM 2.4 mg/dL (1.8-2.4)
[2020-04-15] MEDS ORDERED: SODIUM CHLORIDE 1,000 ML IV STA (14:23)
[2020-04-15] MEDS ORDERED: SODIUM CHLORIDE 1,000 ML IV SCH (17:00)
[2020-04-15 19:17] LABS: CREATININE, URINE RANDOM 106.3 mg/dL
[2020-04-15 20:50] LABS: EPITHELIAL CELLS MODERATE /hpf
[2020-04-15] MEDS ORDERED: cefTRIAXone SODIUM 1 GM VIAL ONE (21:24)
[2020-04-15] MEDS ORDERED: DEXTROSE 5%-WATER - 50 ML IVPB ONE (21:24)
[2020-04-15] MEDS: HEPARIN NA (PORCINE) 5,000 UNITS/ML 1ML VIAL SQ SCH (22:07)
[2020-04-15] MEDS: CEFTRIAXONE 1 GM in DEXTROSE 5%-WATER - 50 ML IVPB SCH (22:07)
[2020-04-16 00:41] LABS: POTASSIUM 3.2 mmol/L (3.5-5.1)
[2020-04-16 00:42] LABS: CALCIUM 8.5 mg/dL (8.5-10.1)
[2020-04-16 00:43] LABS: BLOOD UREA NITROGEN 28.5 mg/dL (7-18)
[2020-04-16 00:46] LABS: CREATININE 1.6 mg/dL (0.55-1.3)
[2020-04-16 01:42] VITALS: BMI 29.2
[2020-04-16] MEDS: KCL 10 MEQ IVPB 10 MEQ/100 ML INFUS.BAG IVPB SCH ×3 (02:18→04:46)
[2020-04-16] MEDS: HEPARIN NA (PORCINE) 5,000 UNITS/ML 1ML VIAL SQ SCH ×2 (06:30→13:39)
[2020-04-16 08:27] LABS: BASO % 0.7 % (0-2.0); EOS % 1.2 % (0-4.5); HEMATOCRIT 31.2 % (32.4-45.2); HEMOGLOBIN 10.6 GM/dL (10.7-15.3); LYMPH % 25.4 % (8-40); MCH 29.7 pg (25.7-33.7); MEAN CELL VOLUME 87.3 fl (80-96); MEAN PLT VOLUME 10.1 fl (7.5-11.1); MONO % 8.7 % (3.8-10.2); PLATELET COUNT 173 K/MM3 (134-434); RBC 3.57 M/mm3 (3.60-5.2); RDW 17.1 % (11.6-15.6); WHITE BLOOD COUNT 7.9 K/mm3 (4.0-10.0)
[2020-04-16 08:28] LABS: POTASSIUM 3.5 mmol/L (3.5-5.1)
[2020-04-16 08:32] LABS: CALCIUM 8.6 mg/dL (8.5-10.1)
[2020-04-16 08:33] LABS: ALBUMIN 2.5 g/dl (3.4-5.0); BLOOD UREA NITROGEN 17.6 mg/dL (7-18); MAGNESIUM 2.5 mg/dL (1.8-2.4)
[2020-04-16 08:37] LABS: BILIRUBIN,TOTAL 0.4 mg/dL (0.2-1)
[2020-04-16 09:45] LABS: ACTIVATED PTT 25.9 SECONDS (25.2-36.5); INR 0.93 (0.83-1.09); PROTHROMBIN TIME (PATIENT) 11.5 SEC (9.7-13.0)
[2020-04-16] MEDS ORDERED: BUDESONIDE/FORMETEROL FUMARATE 160/4.5 mcg INHALER IH SCH (10:00)
[2020-04-16] MEDS ORDERED: cefTRIAXone SODIUM 1 GM VIAL ONE (10:15)
[2020-04-16] MEDS ORDERED: DEXTROSE 5%-WATER - 50 ML IVPB ONE (10:16)
[2020-04-16] MEDS: CEFTRIAXONE 1 GM in DEXTROSE 5%-WATER - 50 ML IVPB SCH (10:23)
[2020-04-16] MEDS ORDERED: NAPH,MB-DB/K PH,MBDB POWDER PACKET PO ONE (13:29)
[2020-04-16 17:39] VITALS: BP 126/92; PULSE 80; TEMP 98.6
[2020-04-16] MEDS ORDERED: MONTELUKAST NA 10 MG TABLET PO SCH (22:00)
== END 2020-04-16 18:49 | disposition home or self-care (01) | DRG 425 ==
LOC: FER 11:47 → J4W 20:05
PROVIDERS: ADMIT Internal Medicine; ATTEND Internal Medicine
DX: E87.6 Hypokalemia (principal); N17.9 Acute kidney failure, unspecified; D72.829 Elevated white blood cell count, unspecified; I10 Essential (primary) hypertension; J45.909 Unspecified asthma, uncomplicated; Z20.828 Contact with and (suspected) exposure to other viral communicable diseases
CPT/HCPCS: 36415; 71045-TC-FY; 80048; 80053; 81003; 81015; 82565; 82728; 83615; 83735; 84100; 84300; 84484; 85025; 85379; 85610; 85730; 86140; 87040; 87086; 87186; 93005; 99285-25; C9803; J1644; U0003

== ENCOUNTER 2020-10-13 19:45 | Emergency (ER) | payer OTHER ==
[2020-10-13 20:05] VITALS: BP 143/97; PULSE 88; TEMP 99.4; BMI 29.2
[2020-10-13] MEDS ORDERED: THIAMINE HCL 100 MG TABLET (FP) PO ONE (20:17)
[2020-10-13] MEDS ORDERED: FOLIC ACID 1 MG TABLET (FP) PO ONE (20:17)
[2020-10-13] MEDS ORDERED: LACTATED RINGERS SOLUTION 1,000 ML/1,000 ML INFUS.BAG IV STA (20:18)
[2020-10-13 20:58] LABS: BASO % 3.2 % (0-2.0); EOS % 0.3 % (0-4.5); HEMATOCRIT 36.5 % (32.4-45.2); HEMOGLOBIN 12.1 GM/dl (10.7-15.3); LYMPH % 29.3 % (8-40); MCH 31.7 pg (25.7-33.7); MCHC 33.2 g/dl (32.0-36.0); MEAN CELL VOLUME 95.7 fl (80-96); MEAN PLT VOLUME 8.8 fl (7.5-11.1); MONO % 5.1 % (3.8-10.2); NEUT % 62.1 % (42.8-82.8); PLATELET COUNT 318 K/MM3 (134-434); RBC 3.81 M/mm3 (3.60-5.2); WHITE BLOOD COUNT 6.3 K/mm3 (4.0-10.8)
[2020-10-13 21:05] LABS: ALBUMIN 3.8 g/dl (3.4-5.0); BILIRUBIN,TOTAL 1.2 mg/dl (0.2-1); CALCIUM 9.2 mg/dl (8.5-10); CREATININE 0.9 mg/dl (0.55-1.3); MAGNESIUM 2.3 mg/dL (1.8-2.4); PHOSPHOROUS 2.7 mg/dl (2.5-4.9); TOT PROT 7.1 g/dl (6.4-8.2)
[2020-10-13] MEDS ORDERED: METOCLOPRAMIDE HCL INJECTION 10 MG/2 ML VIAL IVPB ONE (21:20)
[2020-10-13] MEDS ORDERED: ACETAMINOPHEN 500 MG TABLET (FP) PO ONE (21:20)
[2020-10-13] MEDS ORDERED: ACETAMINOPHEN 500 MG TABLET (FP) ONE (21:23)
[2020-10-13] MEDS ORDERED: METOCLOPRAMIDE HCL INJECTION 10 MG/2 ML VIAL ONE (21:23)
== END 2020-10-13 21:54 | disposition home or self-care (01) ==
LOC: FER 19:45
PROC: 3E033NZ Introduction of Analgesics, Hypnotics, Sedatives into Peripheral Vein, Percutaneous Approach (ICD-10-PCS; principal; 2020-10-13)
PROC: 3E033GC Introduction of Other Therapeutic Substance into Peripheral Vein, Percutaneous Approach (ICD-10-PCS; 2020-10-13)
DX: G44.209 Tension-type headache, unspecified, not intractable (principal)
CPT/HCPCS: 36415; 80053; 81003; 81025; 83735; 84100; 85025; 87086; 87186; 93005; 99284-25

== ENCOUNTER 2020-10-14 14:31 | Emergency (ER) | payer OTHER ==
[2020-10-14] MEDS ORDERED: diphenhydrAMINE HCL 25 MG CAPSULE (FP) PO ONE (14:38)
[2020-10-14] MEDS ORDERED: diphenhydrAMINE HCL 50 MG CAPSULE ONE (14:52)
[2020-10-14 14:56] LABS: BASO % 1.6 % (0-2.0); EOS % 0.6 % (0-4.5); HEMATOCRIT 30.8 % (32.4-45.2); HEMOGLOBIN 10.6 GM/dl (10.7-15.3); LYMPH % 48.2 % (8-40); MCH 32.7 pg (25.7-33.7); MCHC 34.5 g/dl (32.0-36.0); MEAN CELL VOLUME 94.8 fl (80-96); MONO % 8.8 % (3.8-10.2); NEUT % 40.8 % (42.8-82.8); PLATELET COUNT 267 10^3/uL (134-434); RBC 3.25 M/mm3 (3.60-5.2); RDW 14.3 % (11.6-15.6); WHITE BLOOD COUNT 4.8 K/mm3 (4.0-10.8)
[2020-10-14] MEDS ORDERED: KETOROLAC TROMETHAMINE 30 MG/1 ML VIAL IM ONE (15:09)
[2020-10-14 15:11] LABS: ALBUMIN 3.3 g/dl (3.4-5.0); BILIRUBIN,TOTAL 0.8 mg/dl (0.2-1); CALCIUM 8.8 mg/dl (8.5-10); CREATININE 0.9 mg/dl (0.55-1.3); MAGNESIUM 2.1 mg/dL (1.8-2.4); TOT PROT 6.2 g/dl (6.4-8.2)
[2020-10-14] MEDS ORDERED: KETOROLAC TROMETHAMINE 30 MG/1 ML VIAL ONE (15:17)
[2020-10-14] MEDS ORDERED: POTASSIUM CHLORIDE TABS 20 MEQ TABLET.ER (FP) PO ONE ×2 (15:23→15:25)
[2020-10-14 16:36] VITALS: BP 138/79; PULSE 79; TEMP 98.5; BMI 25.8
== END 2020-10-14 17:35 | disposition home or self-care (01) ==
LOC: FER 14:31
PROC: 3E0233Z Introduction of Anti-inflammatory into Muscle, Percutaneous Approach (ICD-10-PCS; principal; 2020-10-14)
DX: R20.2 Paresthesia of skin (principal)
CPT/HCPCS: 36415; 70450-TC; 80053; 82550; 83735; 84484; 85025; 99284-25

== ENCOUNTER 2021-01-18 23:49 | Emergency (ER) | payer OTHER ==
[2021-01-19] MEDS ORDERED: TETRACAINE 0.5% OPHTH SOLN 2 ML BOTTLE ONE (00:13)
[2021-01-19] MEDS ORDERED: FLUORESCEIN NA 1 EA STRIP ONE (00:13)
[2021-01-19 00:24] VITALS: BMI 25.9
[2021-01-19 00:25] VITALS: BP 147/109; PULSE 95; TEMP 98.6
[2021-01-19] MEDS ORDERED: TOBRA 0.3%/DEXAMETH 0.1% OPHTHALMIC SUSP 2.5 ML BTL ONE (00:37)
[2021-01-19] MEDS ORDERED: TOBRA 0.3%/DEXAMETH 0.1% OPHTHALMIC SUSP 2.5 ML BTL OD STA (00:40)
[2021-01-19] MEDS ORDERED: TOBRAMYCIN 0.3% OPHTH SOLN 5 ML BOTTLE ONE (00:42)
[2021-01-19] MEDS ORDERED: TOBRA 0.3%/DEXAMETH 0.1% OPHTHALMIC SUSP 2.5 ML BTL OD SCH (06:00)
== END 2021-01-19 00:46 | disposition home or self-care (01) ==
LOC: FER 23:49
DX: S05.01XA Injury of conjunctiva and corneal abrasion without foreign body, right eye, initial encounter (principal)
CPT/HCPCS: 99283-25

== ENCOUNTER 2021-05-07 08:08 | Emergency (ER) | payer OTHER ==
[2021-05-07] MEDS ORDERED: ACETAMINOPHEN 325 MG TABLET (FP) PO ONE (08:16)
[2021-05-07] MEDS ORDERED: ACETAMINOPHEN 325 MG TABLET (FP) ONE (08:19)
[2021-05-07 09:10] VITALS: BP 170/90; PULSE 76; TEMP 97.6; BMI 27.3
== END 2021-05-07 09:14 | disposition home or self-care (01) ==
LOC: FER 08:08
DX: R07.9 Chest pain, unspecified (principal); V49.40XA Driver injured in collision with unspecified motor vehicles in traffic accident, initial encounter
CPT/HCPCS: 93005; 99283-25

== ENCOUNTER 2023-09-26 01:13 | Emergency (ER) | payer OTHER ==
[2023-09-26 01:22] VITALS: BP 155/108; PULSE 84; RESP 16; TEMP 98.7; BMI 27.3
[2023-09-26] MEDS ORDERED: DIPHTH,PERTUSS(ACELL),TET 0.5 ML DISP.SYRIN IM ONE (01:51)
[2023-09-26] MEDS: DIPHTH,PERTUSS(ACELL),TET 0.5 ML DISP.SYRIN IM ONE (01:53)
== END 2023-09-26 01:55 | disposition home or self-care (01) ==
LOC: FER 01:13
PROC: 0HQ1XZZ Repair Face Skin, External Approach (ICD-10-PCS; principal; 2023-09-26)
PROC: 3E0234Z Introduction of Serum, Toxoid and Vaccine into Muscle, Percutaneous Approach (ICD-10-PCS; 2023-09-26)
DX: S01.81XA Laceration without foreign body of other part of head, initial encounter (principal); W01.0XXA Fall on same level from slipping, tripping and stumbling without subsequent striking against object, initial encounter; Y93.E5 Activity, floor mopping and cleaning
CPT/HCPCS: 12011-25; 90471; 90715; 99284-25

== ENCOUNTER 2023-10-01 19:25 | Emergency (ER) | payer OTHER ==
[2023-10-01 19:33] VITALS: BP 140/97; PULSE 64; RESP 18; TEMP 97.9; BMI 26.5
== END 2023-10-01 19:54 | disposition home or self-care (01) ==
LOC: FER 19:25
DX: Z48.02 Encounter for removal of sutures (principal)
CPT/HCPCS: 99281-25

== ENCOUNTER 2023-11-15 21:08 | Emergency (ER) | payer OTHER ==
[2023-11-15 21:26] VITALS: BP 139/98; PULSE 76; RESP 18; TEMP 97.5; BMI 26.5
== END 2023-11-15 21:40 | disposition home or self-care (01) ==
LOC: FER 21:08
DX: M79.81 Nontraumatic hematoma of soft tissue (principal)
CPT/HCPCS: 99283-25